=== PATIENT | male | born 1955 | race American Indian/Alaskan Native ===

== ENCOUNTER 2019-07-16 17:54 | Emergency (ER) | payer SELFPAY ==
--- NOTE | 2019-07-16 18:10 | Event Note ---
ED Screening Note Date of service: 07/16/19 Time: 18:08 ED Screening Note: 64 y/o male reports that he is not able to urinate all day. This initial assessment/diagnostic orders/clinical plan/treatment(s) is/are subject to change based on patients health status, clinical progression and re-assessment by fellow clinical providers in the ED. Further treatment and workup at subsequent clinical providers discretion. Patient/guardian urged not to elope from the ED as their condition may be serious if not clinically assessed and managed. Initial orders include:
[2019-07-16 19:15] LABS: Basophils % (Auto) 0.5 % (0.0-1.8); Eosinophils % (Auto) 0.2 % (0.0-4.3); Hematocrit 43.1 % (35.5-45.6); Hemoglobin 14.3 gm/dl (11.8-15.2); Lymphocytes # (Auto) 1.2 K/mm3 (1.2-5.4); Mean Corpuscular HGB Conc 33 % (32-34); Mean Corpuscular Volume 93 fl (84-94); Monocytes # (Auto) 0.4 K/mm3 (0.0-0.8); Monocytes % (Auto) 6.5 % (0.0-7.3); Platelet Count 232 K/mm3 (140-440); Red Blood Count 4.66 M/mm3 (3.65-5.03)
--- NOTE | 2019-07-16 19:17 | Emergency Department Report ---
ED Male HPI - General Chief complaint: Urogenital-Male Stated complaint: CANT URINATE Time Seen by Provider: 07/16/19 18:48 Source: patient Mode of arrival: Ambulatory Limitations: No Limitations - History of Present Illness Initial comments: She is a 64-year-old male that presents emergency room with urinary retention and inability to urinate. Patient states that he's having lower abdominal pain. Patient states is a 10 out of 10. Patient states pain is better with rest and worse with exertion. Patient states he urinated prior to 11 AM this morning but has not urinated since. Patient states that he has tried to urinate but nothing comes out. Complaint: other -: Sudden Severity: severe Severity scale (0 -10): 10 Quality: sharp Consistency: constant Improves with: rest Worsens with: movement urinary retention - Related Data Sexually active: Yes Allergies Allergy/AdvReac Type Severity Reaction Status Date / Time No Known Allergies Allergy Unverified 07/16/19 17:57 ED Review of Systems ROS: Stated complaint: CANT URINATE Other details as noted in HPI Constitutional: denies: chills, fever Eyes: denies: eye pain, eye discharge, vision change ENT: denies: ear pain, throat pain Respiratory: denies: cough, shortness of breath, wheezing Cardiovascular: denies: chest pain, palpitations Endocrine: no symptoms reported Gastrointestinal: abdominal pain. denies: nausea, diarrhea Genitourinary: as per HPI. denies: urgency, dysuria Musculoskeletal: denies: back pain, joint swelling, arthralgia Skin: denies: rash, lesions Neurological: denies: headache, weakness, paresthesias Psychiatric: denies: anxiety, depression Hematological/Lymphatic: denies: easy bleeding, easy bruising ED Past Medical Hx - Past Medical History Previous Medical History?: No - Surgical History Past Surgical History?: No - Family History Family history: no significant - Social History Smoking Status: Never Smoker Substance Use Type: None ED Physical Exam - General Limitations: No Limitations General appearance: alert, in no apparent distress - Head Head exam: Present: atraumatic, normocephalic - Eye Eye exam: Present: normal appearance - ENT ENT exam: Present: mucous membranes moist - Neck Neck exam: Present: normal inspection - Respiratory Respiratory exam: Present: normal lung sounds bilaterally. Absent: respiratory distress - Cardiovascular Cardiovascular Exam: Present: regular rate, normal rhythm. Absent: systolic murmur, diastolic murmur, rubs, gallop - GI/Abdominal GI/Abdominal exam: Present: soft, distended (tender bladder noted), tenderness (supra pubic tenderness.), normal bowel sounds. Absent: guarding, rebound - Rectal Rectal exam: Present: deferred - Extremities Exam Extremities exam: Present: normal inspection - Back Exam Back exam: Present: normal inspection - Neurological Exam Neurological exam: Present: alert, oriented X3 - Psychiatric Psychiatric exam: Present: normal affect, normal mood - Skin Skin exam: Present: warm, dry, intact, normal color. Absent: rash ED Course Vital Signs 07/16/19 18:07 Temperature 98.4 F Pulse Rate 91 H Respiratory 16 Rate Blood Pressure 142/87 O2 Sat by Pulse 99 Oximetry - Reevaluation(s) Reevaluation #1: Placed by nurse and patient's symptoms have resolved. Patient had a large amount of clear yellow urine in the bag. 07/16/19 19:13 Reevaluation #2: Patient is pain-free. Patient states he feels better and ready to go home. Patient has 1200 mls in Camacho bag 07/16/19 19:47 Reevaluation #3: I discussed all results with patient. I discussed plan of care with patient. Patient agrees plan of care. Patient stable for discharge. Patient was discharged home with Camacho. I discussed camacho care with patient. I discussed discharge instructions with patient. Patient voiced understanding of all discharge instructions. 07/16/19 20:49 ED Medical Decision Making - Lab Data Result diagrams: 07/16/19 18:26 - Medical Decision Making She is a 64-year-old male that presents emergency room with abdominal pain and urinary retention. Patient had a Camacho placed immediately upon evaluation. Patient's symptoms really improved. Patient was pain-free prior to discharge. Patient discharged home with Camacho catheter. Patient will need to follow up with a urologist. Patient's labs unremarkable. Patient's ua negative for infection. Patient's CBC negative. Patient discharged home. - Differential Diagnosis UTI. Prostatitis. Critical care attestation.: If time is entered above; I have spent that time in minutes in the direct care of this critically ill patient, excluding procedure time. ED Disposition Clinical Impression: Urinary retention Abdominal pain Qualifiers: Abdominal location: lower abdomen, unspecified Qualified Code(s): R10.30 - Lower abdominal pain, unspecified Disposition: TO HOME OR SELFCARE Is pt being admited?: No Does the pt Need Aspirin: No Condition: Stable Instructions: Urinary Retention in Men (ED), Camacho Catheter Placement and Care (ED), Urinary Leg Bag (GEN) Additional Instructions: Patient to follow-up with primary care in 2-3 days. Patient to follow-up with urologist within 2 days. Patient to return to ER if condition worsens. Patient to take Tylenol or I broke when necessary for pain. Patient to return to ER if condition worsens. Patient to rest. Patient to keep Camacho in place until cleared by urologist. Referrals: NICK REDMAN MD [Staff Physician] - 24 Hours Time of Disposition: 20:48
[2019-07-16 20:11] LABS: Bilirubin,Urine NEG (Negative); Blood,Urine NEG (Negative); Color,Urine Straw (Yellow); Protein,Urine <15 mg/dL mg/dL (Negative); Urobilinogen,Urine < 2.0 mg/dL (<2.0); WBC,Urine < 1.0 /HPF (0.0-6.0)
[2019-07-17 01:35] VITALS: BP 136/76
== END 2019-07-16 20:55 | disposition home or self-care (01) ==
LOC: ED 17:54
DX: R33.9 Retention of urine, unspecified (principal)
CPT/HCPCS: 36415; 51702; 81001; 85025